=== PATIENT | male | born 1985 | race Caucasian/White ===

== ENCOUNTER 2019-03-19 08:09 | Emergency (ER) | payer BC, MEDICAID ==
[~2019-03-19] VITALS: Ht 170.2 cm; Wt 68.6 kg
[2019-03-19 08:13] VITALS: BP 129/70; PULSE 58; RESP 18; Ht 170.2 cm; Wt 68.6 kg
[2019-03-19] MEDS ORDERED: DEXAMETHASONE 10 MG/ML 1 ML INJ IM ONE (09:00)
[2019-03-19] MEDS ORDERED: BETA50CR5 TP (09:04)
[2019-03-19] MEDS ORDERED: CLOB60CR2 TOP (09:04)
[2019-03-19] MEDS ORDERED: PRED20TA PO (09:04)
--- NOTE | 2019-03-19 09:26 | ERD ---
ER Documentation Chief Complaint Chief Complaint chronic skin rash, per pt psoriasis HPI 33-year-old male presenting with a rash x1 year. Patient has a history of psoriasis and states he has having an acute reaction. He states he normally had insurance with [employer] however has not had insurance and has not received his Enbrel within the last 4 months. Patient has been using betamethasone and clobetasol as well. He denies any fevers. Denies any other medical problems. NKDA. Surgical history denies. Social history denies ROS All systems reviewed and are negative except as per history of present illness. Medications Home Meds Active Scripts Prednisone* (Prednisone*) 20 Mg Tab, 40 MG PO DAILY for 4 Days, TAB Prov:PATITO FISCHER PA-C 03/19/19 Clobetasol Propionate* (Clobetasol Propionate*) 60 Gm Cream.gm., 1 APPLIC TOP BID, #1 TUB Prov:PATITO FISCHER PA-C 03/19/19 Betamet Diprop/Prop Gly (Betamethasone Dp 0.05% Crm) 50 Gm Cream.gm., 50 GM TP DAILY, #1 Prov:PATITO FISCHER PA-C 03/19/19 Allergies Allergies: Coded Allergies: No Known Allergy (Unverified , 03/19/19) PMhx/Soc Medical and Surgical Hx: pt denies Surgical Hx Hx Miscellaneous Medical Probl: Yes (PSORIASIS) Hx Alcohol Use: No Hx Substance Use: Yes Hx Tobacco Use: No Smoking Status: Never smoker FmHx Family History: No diabetes, No coronary disease, No other Physical Exam Vitals Vital Signs Date Temp Pulse Resp B/P (MAP) Pulse Ox O2 O2 Flow FiO2 Time Delivery Rate 03/19/19 97.1 58 18 129/70 100 08:13 (89) Physical Exam GENERAL: The patient is well-appearing, well-nourished, in no acute distress CHEST: Clear to auscultation bilaterally. There are no rales, wheezes or rhonchi. HEART: Regular rate and rhythm. No murmurs, clicks, rubs or gallops. EXTREMITIES: Equal pulses bilaterally. There is no peripheral clubbing, cyanosis or edema. No focal swelling or erythema. Full range of motion. NEUROLOGIC: Alert and oriented. Cranial nerves II through XII intact. Motor st rength in all 4 extremities with 5 out of 5 strength. Sensation grossly intact. Normal speech and gait. SKIN: Diffuse plaques noted to patient's body. No pustules or vesicles. No fluctuant erythematous masses. Results 24 hrs Current Medications Medications Dose Sig/Cameron Start Time Status Last (Trade) Ordered Route PRN Stop Time Admin Dose Reason Admin 10 mg ONCE ONCE 03/19/19 DC 03/19/19 Dexamethasone IM 09:00 09:08 (Decadron) 03/19/19 09:01 Procedures/MDM ER course: Prednisone given in ED. MDM: 33-year-old male presenting with chronic psoriatic findings. I have low suspicion for infectious process. Patient is discharged with supportive medications. He is told to follow-up with primary care as I am unable to fill his Enbrel in the ER due to necessity of close follow-up for medications. P atlila is told symptoms change or worsen to return immediately to the ER. All questions answered at discharge Departure Diagnosis: Primary Impression: Psoriasis Condition: Stable Patient Instructions: Psoriasis Referrals: [facility] YOU HAVE RECEIVED A MEDICAL SCREENING EXAM AND THE RESULTS INDICATE THAT YOU DO NOT HAVE A CONDITION THAT REQUIRES URGENT TREATMENT IN THE EMERGENCY DEPARTMENT. FURTHER EVALUATION AND TREATMENT OF YOUR CONDITION CAN WAIT UNTIL YOU ARE SEEN IN YOUR DOCTORS OFFICE WITHIN THE NEXT 1-2 DAYS. IT IS YOUR RESPONSIBILITY TO MAKE AN APPOINTMENT FOR FOLOW-UP CARE. IF YOU HAVE A PRIMARY DOCTOR --you should call your primary doctor and schedule an appointment IF YOU DO NOT HAVE A PRIMARY DOCTOR YOU CAN CALL OUR PHYSICIAN REFERRAL HOTLINE AT IF YOU CAN NOT AFFORD TO SEE A PHYSICIAN YOU CAN CHOSE FROM THE FOLLOWING [facility] [address] [facility]. [facility] [address] [facility] [facility] [address] [facility] [facility] [address] [facility]. [facility] [address] [facility]. [facility]. [address] Additional Instructions: FOLLOW UP WITH YOUR PRIMARY CARE PHYSICIAN TOMORROW.Return to this facility if you are not improving as expected. PATITO FISCHER PA-C Mar 19, 2019 09:26
== END 2019-03-19 09:14 | disposition home or self-care (01) ==
LOC: FTE 08:09
DX: L40.9 Psoriasis, unspecified (principal)
CPT/HCPCS: 96372; J1100; Z7502